=== PATIENT | male | born 1970 | race Caucasian/White ===

== ENCOUNTER 2018-02-03 05:28 | Emergency (ER) | payer OTHER ==
[~2018-02-03] VITALS: Ht 175.3 cm; Wt 119.7 kg
[2018-02-03 05:32] VITALS: Ht 175.3 cm; Wt 119.7 kg
[2018-02-03 06:46] LABS: BASOPHIL % 0.4 % (0-2); PLATELET COUNT 205 x10^3mcL (130-400); RED CELL DISTRIBUTION WIDTH 13.8 % (11.5-14.5)
[2018-02-03 06:57] LABS: CARBON DIOXIDE 27.1 mmol/L (21-32); CHLORIDE SERUM 106 mmol/L (98-107); CREATININE SERUM 0.9 mg/dL (0.7-1.3); GFR1 > 60 mL/min; GLUCOSE SERUM 119 mg/dL (74-106); POTASSIUM SERUM 3.2 mmol/L (3.5-5.1); SODIUM SERUM 142 mmol/L (136-145)
[2018-02-03 07:02] LABS: ALKALINE PHOSPHATASE 86 U/L (46-116); ALT/SGPT 43 U/L (16-63); AST/SGOT 18 U/L (15-37); BILIRUBIN TOTAL 0.3 mg/dL (0.20-1.00); TOTAL PROTEIN, SERUM 6.9 g/dL (6.4-8.2)
[2018-02-03 07:04] LABS: ALBUMIN 3.3 g/dL (3.4-5.0)
[2018-02-03] MEDS ORDERED: HYDROCHLOROTHIA25 MG PO (07:35)
[2018-02-03] MEDS ORDERED: LISINOPRIL40 MG PO (07:35)
[2018-02-03] MEDS ORDERED: NOR10 PO (07:36)
[2018-02-03 07:45] LABS: AMPHETAMINE QUAL UR NONE DETECTED (See below)
[2018-02-03 08:29] VITALS: BP 139/88
== END 2018-02-03 08:29 | disposition home or self-care (01) ==
LOC: ED 05:28
PROVIDERS: Emergency Medicine
DX: I24.9 Acute ischemic heart disease, unspecified (principal); I10 Essential (primary) hypertension; R68.84 Jaw pain; R06.00 Dyspnea, unspecified; Z88.0 Allergy status to penicillin
CPT/HCPCS: 36415; 83880; Q0092